=== PATIENT | male | born 1960 | race Caucasian/White ===

== ENCOUNTER 2020-02-12 15:11 | Emergency (ER) | payer SELFPAY ==
[~2020-02-12] VITALS: Ht 175.3 cm; Wt 76.8 kg
[2020-02-12] MEDS ORDERED: CLINDAMYCIN HCL 150 MG CAPSULE PO ONE (16:00)
[2020-02-12] MEDS ORDERED: LIDOCAINE 2%/EPI 1:100,000 20 ML VIAL. IJ ONE (16:00)
[2020-02-12] MEDS ORDERED: DIPH,PERTUSS(ACELL),TET VAC/PF 0.5 ML SYRINGE. VAX IM ONE (16:00)
[2020-02-12] MEDS ORDERED: BUTALB/APAP/CAFEIN 50/325/40MG TABLET. PO ONE (16:00)
--- NOTE | 2020-02-12 16:26 | RAD ---
RS Compliance Statement: One or more of the following individualized dose reduction techniques were utilized for this examination: 1. Automated exposure control 2. Adjustment of the mA and/or kV according to patient size 3. Use of iterative reconstruction technique CT HEAD WITHOUT CONTRAST History: Headache, head contusion, left sabianist abscess. Comparison: None. Procedure: Axial images are obtained of the head from the skull base through the vertex without IV contrast. Findings: The ventricles and sulci are normal for the patient's age. No mass-effect, midline shift, hemorrhage, extra-axial fluid collection, or obvious acute infarction is identified. Basilar cisterns are patent. Bone windows demonstrate no acute calvarial abnormality. There is moderate left orbit preseptal soft tissue swelling. There is left frontal scalp soft tissue swelling. There is a focal soft tissue density of the left frontal scalp measuring approximately 2.2 x 0.9 cm, image 19. No organized subcutaneous fluid collection is identified. The visualized paranasal sinuses are clear. Mastoid air cells are well aerated. IMPRESSION: 1. No acute intracranial abnormality. 2. There is left cheek, preseptal left orbit, and left frontal scalp soft tissue swelling. There is a focal soft tissue density of the left frontal scalp that may be hematoma. Electronically signed by: Boni Lynn MD (02/12/2020 4:24 PM) [id number]
[2020-02-12] MEDS ORDERED: BUTA1TAB23 PO (16:49)
[2020-02-12] MEDS ORDERED: CLIN300C8 PO (16:49)
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
[2020-02-12 17:27] VITALS: BP 141/91
== END 2020-02-12 17:39 | disposition home or self-care (01) ==
LOC: ER 15:11
DX: S00.83XA Contusion of other part of head, initial encounter (principal); L02.01 Cutaneous abscess of face; R51 Headache; F17.210 Nicotine dependence, cigarettes, uncomplicated; W22.8XXA Striking against or struck by other objects, initial encounter; Y93.89 Activity, other specified; Y92.89 Other specified places as the place of occurrence of the external cause; Y99.8 Other external cause status
CPT/HCPCS: 10060; 70450; 90471; 90715; 99284-25

== ENCOUNTER 2020-07-25 10:08 | Emergency (ER) | payer SELFPAY ==
[~2020-07-25] VITALS: Ht 175.3 cm; Wt 76.8 kg
[~2020-07-25 10:08] MED LIST: BUTA1TAB23 PO; CLIN300C8 PO
--- NOTE | 2020-07-25 10:34 | PHYS DOC ---
Past History Past Medical History: No Pertinent History Past Surgical History: No Surgical History Smoking: Cigarettes Alcohol Use: None Drug Use: None General Adult EDM: Chief Complaint: OVERDOSE HPI: HPI: 60-year-old male presents via EMS with possible overdose. The patient was found lying somewhere with a needle sticking out of his leg. The needle was removed prior to arrival. Patient is awake and alert. He is agitated and admits to only taking 1 Xanax pill. He was attempting to shoot up heroin but it did not work. He denies any other complaints except for being very thirsty. Review of Systems: Review of Systems: Constitutional: Denies fever or chills. Overdose Eyes: Denies change in visual acuity HENT: Denies nasal congestion or sore throat Respiratory: Denies cough or shortness of breath Cardiovascular: Denies chest pain or edema GI: Denies abdominal pain, nausea, vomiting, bloody stools or diarrhea : Denies dysuria Musculoskeletal: Denies back pain or joint pain Integument: Denies rash Neurologic: Denies headache, focal weakness or sensory changes Endocrine: Denies polyuria or polydipsia Lymphatic: Denies swollen glands Psychiatric: Denies depression or anxiety Allergies: Allergies: Allergies Coded Allergies Type Severity Reaction Last Updated Verified No Known Drug Allergies 02/12/20 No Physical Exam: PE: Constitutional: Well developed, well nourished, restless, non-toxic appearance. [] HENT: Normocephalic, atraumatic, bilateral external ears normal, oropharynx moist, no oral exudates, nose normal. [] Eyes: PERRLA, EOMI, conjunctiva normal, no discharge. [] Neck: Normal range of motion, no tenderness, supple, no stridor. [] Cardiovascular: Heart rate regular rhythm, no murmur [] Lungs & Thorax: Bilateral breath sounds clear to auscultation [] Abdomen: Bowel sounds normal, soft, no tenderness, no masses, no pulsatile masses. [] Skin: Warm, dry, no erythema, no rash. [] Back: No tenderness, no CVA tenderness. [] Extremities: No tenderness, no cyanosis, no clubbing, ROM intact, no edema. [] Neurologic: Alert and oriented X 3, normal motor function, normal sensory function, no focal deficits noted. [] Psychologic: Affect agitated, restless, judgement normal. [] EKG: EKG: [] Radiology/Procedures: Radiology/Procedures: [] Heart Score: Risk Factors: Risk Factors: DM, Current or recent (<one month) smoker, HTN, HLP, family history of CAD, obesity. Risk Scores: Score 0 - 3: 2.5% MACE over next 6 weeks - Discharge Home Score 4 - 6: 20.3% MACE over next 6 weeks - Admit for Clinical Observation Score 7 - 10: 72.7% MACE over next 6 weeks - Early Invasive Strategies Course & Med Decision Making: Course & Med Decision Making Pertinent Labs and Imaging studies reviewed. (See chart for details) The patient's labs are significant for some mild anemia and an elevated creatinine. I have given the patient couple liters normal saline. He was very thirsty and difficulty getting his urine. The patient's drug screen is positive for opiates, cocaine, methamphetamine, and benzodiazepines. I suspect that he did not just take a single Xanax. He is alert and oriented. He is able to walk without help. He is aware of his surroundings and situation. He is stable for discharge at this time. [] Dragon Disclaimer: Dragon Disclaimer: This electronic medical record was generated, in whole or in part, using a voice recognition dictation system. Departure Departure: Impression: Primary Impression: Polysubstance abuse Disposition: 01 DC HOME SELF CARE/HOMELESS Condition: STABLE Referrals: PCPOSWALD (PCP) Patient Instructions: Alcohol and Drug Addiction, Finding Treatment WESLEY STEELE DO Jul 25, 2020 10:34
[2020-07-25] MEDS ORDERED: ONDANSETRON PF 4 MG/2 ML VIAL. IVP ONE (10:45)
[2020-07-25] MEDS ORDERED: IV NORMAL SALINE 1,000ML 1,000 ML IV ONE ×2 (10:45→12:15)
[2020-07-25 11:34] LABS: BASO % 1 % (0-3); EOS # 0.1 x10^3/uL (0.0-0.7); EOS % 2 % (0-3); HEMATOCRIT 32.6 % (39.0-53.0); HEMOGLOBIN 10.1 g/dL (13.0-17.5); LYMPH # 1.1 x10^3/uL (1.0-4.8); LYMPH % 17 % (24-48); MEAN CORPUSCULAR HEMOGLOBIN 26 pg (25-35); MEAN CORPUSCULAR HGB CONC 31 g/dL (31-37); MEAN CORPUSCULAR VOLUME 84 fL (79-100); MONO # 0.9 x10^3/uL (0.0-1.1); MONO % 13 % (0-9); NEUT # 4.5 x10^3uL (1.8-7.7); NEUT % 68 % (31-73); PLATELET COUNT 261 x10^3/uL (140-400); RED BLOOD COUNT 3.87 x10^6/uL (4.30-5.70); RED CELL DISTRIBUTION WIDTH 15.6 % (11.5-14.5); WHITE BLOOD COUNT 6.7 x10^3/uL (4.0-11.0)
[2020-07-25 11:43] LABS: CALCIUM 9.3 mg/dL (8.5-10.1); CREATININE 1.5 mg/dL (0.7-1.3); GFR 47.7; POTASSIUM 5.3 mmol/L (3.5-5.1)
[2020-07-25 11:48] LABS: TOTAL BILIRUBIN 0.3 mg/dL (0.2-1.0)
[2020-07-25] MEDS ORDERED: HALOPERIDOL LACT 5 MG/ML VIAL. IVP ONE (12:00)
[2020-07-25 14:18] LABS: BACTERIA,URINE 0 /HPF (0-FEW); BILIRUBIN,URINE NEG (NEG); CLARITY,URINE CLEAR; COLOR,URINE YELLOW; GLUCOSE,URINE NEG (NEG); NITRITE,URINE NEG (NEG); RBC,URINE 0 /HPF (0-2); SQUAMOUS EPITHELIAL CELL,UR FEW /LPF; UROBILINOGEN,URINE 0.2 mg/dL (0.2 mg/dL); WBC,URINE OCC /HPF (0-4)
[2020-07-25 14:20] LABS: BARBITURATES NEG (NEG); BENZODIAZEPINES POS (NEG); CANNABINOIDS NEG (NEG); COCAINE POS (NEG); METHADONE NEG (NEG); OPIATES POS (NEG); PHENCYCLIDINE NEG (NEG)
[2020-07-25 14:24] LABS: AMPHETAMINE/METHAMPHETAMINE POS (NEG)
[2020-07-25 14:28] VITALS: BP 103/68
== END 2020-07-25 14:47 | disposition home or self-care (01) ==
LOC: ER 10:08
DX: F19.10 Other psychoactive substance abuse, uncomplicated (principal); R45.1 Restlessness and agitation; F17.210 Nicotine dependence, cigarettes, uncomplicated
CPT/HCPCS: 36415; 80053; 80307; 81001; 85025; 96361; 96374; 99283; J2405; J7030; 99284-25

== ENCOUNTER 2020-08-25 06:48 | Emergency (ER) | payer SELFPAY ==
[~2020-08-25] VITALS: Ht 175.3 cm; Wt 76.8 kg
--- NOTE | 2020-08-25 06:56 | PHYS DOC ---
Past History Past Medical History: No Pertinent History Past Surgical History: No Surgical History Smoking: Cigarettes Alcohol Use: None Drug Use: Cocaine, Methamphetamine General Adult EDM: Chief Complaint: ALTERED MENTAL STATUS HPI: HPI: Patient is a 60-year-old male who arrives with a chief complaint of altered mental status. Patient arrives via EMS after being called by the police department when he was trying to get into a neighbor's house. Patient is agitated and combative. Patient has altered mental status defers history physical review of systems are all limited due to altered mental status. Patient does complain of diffuse joint pain. Review of Systems: Review of Systems: Review of systems is unobtainable due to altered mental status but patient does complain of diffuse arthralgias Current Medications: Current Meds: Current Medications Haloperidol Lactate (Haldol) 5 mg 1X ONCE IVP ; Start 08/25/20 at 07:30; Stop 08/25/20 at 07:02; Status DC Lorazepam (Ativan Inj) 1 mg 1X ONCE IVP ; Start 08/25/20 at 07:30; Stop 08/25/20 at 07:02; Status DC Dextrose (Dextrose 50%-Water Syringe) 25 gm 1X ONCE IV Last administered on 08/25/20at 07:38; Start 08/25/20 at 07:00; Stop 08/25/20 at 07:02; Status DC Haloperidol Lactate (Haldol) 5 mg 1X ONCE IM Last administered on 08/25/20at 07:37; Start 08/25/20 at 07:00; Stop 08/25/20 at 07:04; Status DC Lorazepam (Ativan Inj) 1 mg 1X ONCE IM Last administered on 08/25/20at 07:38; Start 08/25/20 at 07:00; Stop 08/25/20 at 07:04; Status DC Lorazepam (Ativan Inj) 2 mg 1X ONCE IVP Last administered on 08/25/20at 07:38; Start 08/25/20 at 07:45; Stop 08/25/20 at 07:46; Status DC Sodium Chloride 1,000 ml @ 1,000 mls/hr 1X ONCE IV Last administered on 08/25/20at 08:29; Start 08/25/20 at 08:15; Stop 08/25/20 at 09:14; Status DC Active Scripts Active Clindamycin Hcl 300 Mg Capsule 1 Cap PO TID Riznwy-Sqmpwtyy-Owup 50-325-40 (Butalb/Acetaminophen/Caffeine) 1 Each Tablet 1 Each PO Q6HRS PRN Allergies: Allergies: Allergies Coded Allergies Type Severity Reaction Last Updated Verified No Known Drug Allergies 02/12/20 No Physical Exam: PE: Constitutional: Disheveled appearing anxious, no respiratory distress HENT: Normocephalic, atraumatic, bilateral external ears normal, no trismus nose normal. [] Eyes: PERRLA, EOMI, conjunctiva normal, no discharge. [] Neck: Normal range of motion, no tenderness, supple, no stridor. [] Cardiovascular:Heart rate regular rhythm, peripheral pulses are intact cap refill is brisk Lungs & Thorax: Bilateral breath sounds clear, no respiratory distress Abdomen: soft, no tenderness, no masses, no pulsatile masses. [] Skin: Warm, dry, no erythema, no rash. [] Several areas on upper extremities consistent with possible injection sites Back: No tenderness, no CVA tenderness. [] Extremities: no cyanosis, no clubbing, ROM intact, no edema. [] Neurologic: Alert but disoriented, normal motor function, normal sensory function, agitated unable to sit still Psychologic: Agitated, anxious Current Patient Data: Labs: Laboratory Tests Test 08/25/20 06:53 08/25/20 07:15 08/25/20 10:22 Glucose (Fingerstick) 68 mg/dL 76 mg/dL White Blood Count 8.5 x10^3/uL Red Blood Count 4.08 x10^6/uL Hemoglobin 10.5 g/dL Hematocrit 33.6 % Mean Corpuscular Volume 82 fL Mean Corpuscular Hemoglobin 26 pg Mean Corpuscular Hemoglobin Concent 31 g/dL Red Cell Distribution Width 16.8 % Platelet Count 254 x10^3/uL Neutrophils (%) (Auto) 68 % Lymphocytes (%) (Auto) 18 % Monocytes (%) (Auto) 10 % Eosinophils (%) (Auto) 4 % Basophils (%) (Auto) 1 % Neutrophils # (Auto) 5.8 x10^3uL Lymphocytes # (Auto) 1.5 x10^3/uL Monocytes # (Auto) 0.8 x10^3/uL Eosinophils # (Auto) 0.3 x10^3/uL Basophils # (Auto) 0.0 x10^3/uL Sodium Level 145 mmol/L Potassium Level 3.7 mmol/L Chloride Level 108 mmol/L Carbon Dioxide Level 24 mmol/L Anion Gap 13 Blood Urea Nitrogen 15 mg/dL Creatinine 1.1 mg/dL Estimated GFR (Cockcroft-Gault) 68.3 BUN/Creatinine Ratio 14 Glucose Level 77 mg/dL Calcium Level 8.3 mg/dL Magnesium Level 2.0 mg/dL Total Bilirubin 0.3 mg/dL Aspartate Amino Transf (AST/SGOT) 32 U/L Alanine Aminotransferase (ALT/SGPT) 31 U/L Alkaline Phosphatase 55 U/L Ammonia 16 mcmol/L Total Protein 7.5 g/dL Albumin 3.6 g/dL Albumin/Globulin Ratio 0.9 Salicylates Level < 2.8 mg/dL Salicylate Last Dose Date Unknown Salicylate Last Dose Time Unknown Acetaminophen Level < 2.0 mcg/mL Acetaminophen Last Dose Date Unknown Acetaminophen Last Dose Time Unknown Ethyl Alcohol Level < 10 mg/dL Current Medications Medications (Trade) Dose Ordered Sig/Eloise Route PRN Reason Start Time Stop Time Status Last Admin Dose Admin Haloperidol Lactate (Haldol) 5 mg 1X ONCE IVP 08/25/20 07:30 08/25/20 07:02 DC Lorazepam (Ativan Inj) 1 mg 1X ONCE IVP 08/25/20 07:30 08/25/20 07:02 DC Dextrose (Dextrose 50%-Water Syringe) 25 gm 1X ONCE IV 08/25/20 07:00 08/25/20 07:02 DC 08/25/20 07:38 Haloperidol Lactate (Haldol) 5 mg 1X ONCE IM 08/25/20 07:00 08/25/20 07:04 DC 08/25/20 07:37 Lorazepam (Ativan Inj) 1 mg 1X ONCE IM 08/25/20 07:00 08/25/20 07:04 DC 08/25/20 07:38 Lorazepam (Ativan Inj) 2 mg 1X ONCE IVP 08/25/20 07:45 08/25/20 07:46 DC 08/25/20 07:38 Sodium Chloride 1,000 ml @ 1,000 mls/hr 1X ONCE IV 08/25/20 08:15 08/25/20 09:14 DC 08/25/20 08:29 Vital Signs: Vital Signs Date Time Temp Pulse Resp B/P (MAP) Pulse Ox O2 Delivery O2 Flow Rate FiO2 08/25/20 06:48 97.7 88 24 105/61 (76) 96 Room Air EKG: EKG: [] EKG interpreted by me normal sinus rhythm with a rate of 76 normal axis normal intervals nonspecific ST changes Radiology/Procedures: Radiology/Procedures: [[address] [id number] IMAGING REPORT Signed PATIENT: SYLVIE PEACOCK ACCOUNT: [id number] : 1960 LOCATION: ER AGE: 60 SEX: M EXAM STATUS: REG ER ORD. PHYSICIAN: ROXANN SINGH MD REASON: AMS- IT'LL B AWHILE PER DR PROCEDURE: PORTABLE CHEST 1V AP chest. HISTORY: Altered mental status AP view was taken of the chest. Heart is normal in size. There is no pleural effusion. There is linear scarring or atelectasis in the medial right lower lobe. There are no other infiltrates. IMPRESSION: 1. Mild right lung base linear scar or atelectasis without other infiltrates. Electronically signed by: Garry Woodard MD (08/25/2020 9:28 AM) [id number] DICTATED AND SIGNED BY: GARRY WOODARD MD DATE: 08/25/20927 CC: ROXANN SINGH MD; PCP,NO ~MTH0 0 ] [address] [id number] IMAGING REPORT Signed PATIENT: SYLVIE PEACOCK ACCOUNT: [id number] : 1960 LOCATION: ER AGE: 60 SEX: M EXAM STATUS: REG ER ORD. PHYSICIAN: ROXANN SINGH MD REASON: AMS PROCEDURE: CT HEAD WO CONTRAST INDICATION: Reason: AMS / Spl. Instructions: / History: COMPARISON: February 12, 2020 TECHNIQUE: Axial CT images obtained through the head without intravenous contrast. One or more of the following individualized dose reduction techniques were utilized for this examination: 1. Automated exposure control; 2. Adjustment of the mA and/or kV according to patient size; 3. Use of iterative reconstruction technique. FINDINGS: No intracranial hemorrhage. No midline shift. Basal cisterns patents. Ventricles and sulci are globally prominent. No acute osseous abnormality. Orbits and paranasal sinuses unremarkable. Scattered foci of low attenuation within the white matter. IMPRESSION: 1. No acute intracranial hemorrhage. 2. Scattered regions of low attenuation within the white matter. Non-specific in nature but frequently secondary to chronic small vessel ischemic disease. 3. Prominence of ventricles and sulci which is frequently secondary to age related volume loss. Electronically signed by: Mariela Kearney MD (08/25/2020 10:06 AM) [id number] DICTATED AND SIGNED BY: MARIELA KEARNEY MD DATE: 08/25/20 1006 CC: ROXANN SINGH MD; PCP,NO ~MTH0 0 Heart Score: Risk Factors: Risk Factors: DM, Current or recent (<one month) smoker, HTN, HLP, family history of CAD, obesity. Risk Scores: Score 0 - 3: 2.5% MACE over next 6 weeks - Discharge Home Score 4 - 6: 20.3% MACE over next 6 weeks - Admit for Clinical Observation Score 7 - 10: 72.7% MACE over next 6 weeks - Early Invasive Strategies Course & Med Decision Making: Course & Med Decision Making Pertinent Labs and Imaging studies reviewed. (See chart for details) [] Procedure note: Clinical indication: Unable to obtain IV access Clinical procedure: Right external jugular placement Procedure note: Skin prepped with chlor hexedine prep. 20-gauge IV catheter inserted by me. IV secured. IV flushes and draws back easily. No complications. 60-year-old male presents via EMS with altered mental status. Patient extremely irrational and intermittently combative on initial assessment. Patient had to be medicated in the ER so would get an evaluation done. Patient much calmer after sedation and rested for multiple hours in ER. Patient's work-up is reassuring. CT is negative throughout intercranial process. Most likely patient symptoms are due to substance abuse. Patient reassessed at 1:10 PM and awake and alert. Patient will be discharged home. Return precautions. Cheri Disclaimer: Cheri Disclaimer: This electronic medical record was generated, in whole or in part, using a voice recognition dictation system. Departure Departure: Impression: Primary Impression: Polysubstance abuse Additional Impression: Metabolic encephalopathy Disposition: 01 DC HOME SELF CARE/HOMELESS Condition: STABLE Referrals: PCP,NO (PCP) Patient Instructions: Altered Mental Status, Substance Abuse-Brief Additional Instructions: EMERGENCY DEPARTMENT GENERAL DISCHARGE INSTRUCTIONS THANK YOU for coming to [facility] Emergency Department (ED) today and trusting us with your care. We trust that you had a positive experience in our Emergency Department. If you wish to speak to the department Management you can contact the emergency department at YOUR FOLLOW UP INSTRUCTIONS ARE FOLLOWS: Do you have a private doctor? If you do not have a private doctor, please ask for a resource list of physicians or clinics that may be able to assist you with follow up care. The Emergency Physician has interpreted your x-rays. The X-ray specialist will also review them. If there is a change in the findings you will be notified in 48 hours when at all possible. A lab test or lab culture may have been done, your results will be reviewed and you will be notified if you need a change in treatment. ADDITIONAL INSTRUCTIONS AND INFORMATION Your care today has been supervised by a physician who is specially trained in emergency care. Many problems require more than one evaluation for a complete diagnosis and treatment. We recommend that you schedule your follow up appointment as recommended to ensure complete treatment of your illness or injury. If you are unable to obtain follow up care and continue to have a problem, or if your condition worsens we recommend that you return to the ED. We are not able to safely determine your condition over the phone nor are we able to give sound medical advice over the phone. For these safety reasons, if you call for medical advice we will ask you to come to the ED for further evaluation If you have any questions regarding these discharge instructions please call the ED at SAFETY INFORMATION In the interest of safety, wellness, and injury prevention; we encourage you to wear your seatbelt, if you smoke; quit smoking, and we encourage your family to use protective helmet for bicycling and other sporting events that present an increased risk for head injury. IF YOUR SYMPTOMS WORSEN OR NEW SYMPTOMS DEVELOP, OR YOU HAVE CONCERNS ABOUT YOUR CONDITION; OR IF YOUR CONDITION WORSENS WHILE YOU ARE WAITING FOR YOUR FOLLOW UP APPOINTMENT; EITHER CONTACT YOUR PRIMARY CARE DOCTOR, THE PHYSICIAN WHOSE NAME AND NUMBER YOU WERE GIVEN, OR RETURN TO THE ED IMMEDIATELY. ROXANN SINGH MD Aug 25, 2020 06:56
[2020-08-25] MEDS ORDERED: HALOPERIDOL LACT 5 MG/ML VIAL. IM ONE (07:00)
[2020-08-25] MEDS ORDERED: DEXTROSE 50% 25 GM / 50ML DISP.SYRIN. IV ONE (07:00)
[2020-08-25] MEDS ORDERED: HALOPERIDOL LACT 5 MG/ML VIAL. IVP ONE (07:30)
[2020-08-25 07:55] LABS: BASO % 1 % (0-3); EOS # 0.3 x10^3/uL (0.0-0.7); EOS % 4 % (0-3); HEMATOCRIT 33.6 % (39.0-53.0); HEMOGLOBIN 10.5 g/dL (13.0-17.5); LYMPH # 1.5 x10^3/uL (1.0-4.8); LYMPH % 18 % (24-48); MEAN CORPUSCULAR HEMOGLOBIN 26 pg (25-35); MEAN CORPUSCULAR HGB CONC 31 g/dL (31-37); MEAN CORPUSCULAR VOLUME 82 fL (79-100); MONO # 0.8 x10^3/uL (0.0-1.1); MONO % 10 % (0-9); NEUT # 5.8 x10^3uL (1.8-7.7); NEUT % 68 % (31-73); PLATELET COUNT 254 x10^3/uL (140-400); RED BLOOD COUNT 4.08 x10^6/uL (4.30-5.70); RED CELL DISTRIBUTION WIDTH 16.8 % (11.5-14.5); WHITE BLOOD COUNT 8.5 x10^3/uL (4.0-11.0)
[2020-08-25 07:58] LABS: CALCIUM 8.3 mg/dL (8.5-10.1); CREATININE 1.1 mg/dL (0.7-1.3); GFR 68.3; POTASSIUM 3.7 mmol/L (3.5-5.1)
[2020-08-25 08:01] LABS: ETHANOL < 10 mg/dL (0-10); SALIC < 2.8 mg/dL (2.8-20.0)
[2020-08-25 08:02] LABS: ACETAMIN < 2.0 mcg/mL (10-30)
[2020-08-25 08:05] LABS: ALBUMIN 3.6 g/dL (3.4-5.0); ALBUMIN/GLOBULIN RATIO 0.9 (1.0-1.7); TOTAL BILIRUBIN 0.3 mg/dL (0.2-1.0); TOTAL PROTEIN 7.5 g/dL (6.4-8.2)
[2020-08-25] MEDS ORDERED: IV NORMAL SALINE 1,000ML 1,000 ML IV ONE (08:15)
--- NOTE | 2020-08-25 08:59 | EKG ---
[address] [address] Test Date: 2020-08-25 Test Time: 08:09:13 Pat Name: SYLVIE PEACOCK Department: Room: Gender: M Supervisor Customer Complaint Service: : 1960 Requested By: ROXANN SINGH Order Number: [id number] Reading MD: Measurements Intervals [place] Rate: 76 P: 59 [place]: 190 QRS: 31 QRSD: 100 T: 66 QT: 390 QTc: 443 Interpretive Statements SINUS RHYTHM T ABNORMALITY IN HIGH LATERAL LEADS ABNORMAL ECG RI6.02 No previous ECG available for comparison
--- NOTE | 2020-08-25 09:31 | RAD ---
AP chest. HISTORY: Altered mental status AP view was taken of the chest. Heart is normal in size. There is no pleural effusion. There is linear scarring or atelectasis in the medial right lower lobe. There are no other infiltrates. IMPRESSION: 1. Mild right lung base linear scar or atelectasis without other infiltrates. Electronically signed by: Garry Woodard MD (08/25/2020 9:28 AM) [id number]
--- NOTE | 2020-08-25 10:09 | RAD ---
INDICATION: Reason: AMS / Spl. Instructions: / History: COMPARISON: February 12, 2020 TECHNIQUE: Axial CT images obtained through the head without intravenous contrast. One or more of the following individualized dose reduction techniques were utilized for this examination: 1. Automated exposure control; 2. Adjustment of the mA and/or kV according to patient size; 3. Use of iterative reconstruction technique. FINDINGS: No intracranial hemorrhage. No midline shift. Basal cisterns patents. Ventricles and sulci are globally prominent. No acute osseous abnormality. Orbits and paranasal sinuses unremarkable. Scattered foci of low attenuation within the white matter. IMPRESSION: 1. No acute intracranial hemorrhage. 2. Scattered regions of low attenuation within the white matter. Non-specific in nature but frequently secondary to chronic small vessel ischemic disease. 3. Prominence of ventricles and sulci which is frequently secondary to age related volume loss. Electronically signed by: Agusto Loera MD (08/25/2020 10:06 AM) [id number]
[2020-08-25 13:17] VITALS: BP 139/86
== END 2020-08-25 14:00 | disposition home or self-care (01) ==
LOC: ER 06:48
DX: F19.10 Other psychoactive substance abuse, uncomplicated (principal); G93.41 Metabolic encephalopathy; F17.210 Nicotine dependence, cigarettes, uncomplicated; F14.10 Cocaine abuse, uncomplicated; F15.10 Other stimulant abuse, uncomplicated
CPT/HCPCS: 36415; 36556; 70450; 71045; 80053; 80329; 82140; 82947; 83735; 85025; 93005; 96361; 96372; 96374; 96375; 99285; G0480; J1630; J2060; J7030

== ENCOUNTER 2021-03-14 21:01 | Emergency (ER) | payer SELFPAY ==
[~2021-03-14] VITALS: Ht 175.3 cm; Wt 76.8 kg
[~2021-03-14 21:01] MED LIST changes: -CLIN300C8 PO; +CLIN300C9 PO
--- NOTE | 2021-03-14 21:39 | PHYS DOC ---
Past History Past Medical History: Alcoholism, Anxiety, COPD Past Surgical History: Other Additional Past Surgical Histo: ORAL SX Smoking: Cigarettes Alcohol Use: Occasionally Drug Use: Cocaine, Methamphetamine General Adult EDM: Chief Complaint: DEHYDRATION HPI: HPI: ".. I was out side to long today.. 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 I got cramps. now.. out side to long.. got dehydrated.. " Patient is a 60 year old male who presents with above hx and complaints generalized malaise, arthralgia, myalgia, muscle cramps, abdomen pain and fatigue. Patient admits to poor intake today. 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 Patient has past history of polysubstance abuse use of cocaine and methamphetamine. Patient does smoke tobacco and marijuana. No recent travel. No specific ill contacts. Patient admits to minimal urine output and what the urine output has been very dark in color. Review of Systems: Review of Systems: Constitutional: Denies fever or chills Eyes: Denies change in visual acuity HENT: Denies nasal congestion or sore throat Respiratory: Denies cough or shortness of breath Cardiovascular: Denies chest pain or edema GI: Denies abdominal pain, nausea, vomiting, bloody stools or diarrhea : Denies dysuria Musculoskeletal: Complains of cramps Integument: Denies rash Neurologic: Denies headache, focal weakness or sensory changes Endocrine: Denies polyuria or polydipsia Lymphatic: Denies swollen glands Psychiatric: Denies depression or anxiety Family History: Family History: Noncontributory to presentation Current Medications: Current Meds: See nursing for home meds Allergies: Allergies: Allergies Coded Allergies Type Severity Reaction Last Updated Verified No Known Drug Allergies 02/12/20 No Physical Exam: PE: Constitutional: Mild distress, non-toxic appearance. [] HENT: Normocephalic, atraumatic, bilateral external ears normal, oropharynx dry, no oral exudates, nose normal. Edentulous Eyes: PERRLA, EOMI, conjunctiva normal, no discharge. [] Neck: Normal range of motion, no tenderness, supple, no stridor. [] Cardiovascular:Heart rate regular rhythm, no murmur [PMI slightly to the left,] Lungs & Thorax: Bilateral breath sounds to apex with scattered wheezes on auscultation [] Abdomen: Bowel sounds normal, soft, no tenderness, no masses, no pulsatile masses. [] Skin: Warm, dry, no erythema, no rash. Poor turgor. Back: No tenderness, no CVA tenderness. [] Extremities: No tenderness, no cyanosis, no clubbing, ROM intact, no edema. [] No cording appreciated Neurologic: Alert and oriented X 3, moves extremities on request, does have distal sensory., no focal deficits noted. [] Psychologic: Affect anxious, judgement normal, mood normal. [] Current Patient Data: Vital Signs: Vital Signs Date Time Temp Pulse Resp B/P (MAP) Pulse Ox O2 Delivery O2 Flow Rate FiO2 03/14/21 21:30 97.7 96 18 106/73 (84 95 Room Air EKG: EKG: My interpretation EKG shows a sinus rhythm at 71 bpm. No acute morphology [] Radiology/Procedures: Radiology/Procedures: [][place] [address] IMAGING REPORT Signed PATIENT: SYLVIE PEACOCK ACCOUNT: [id number] : 1960 LOCATION: ER AGE: 60 SEX: M EXAM STATUS: REG ER ORD. PHYSICIAN: AMANDA CA MD REASON: pain PROCEDURE: PORTABLE CHEST 1V PROCEDURE: XR CHEST 1V.03/14/2021 11:56 PM REASON FOR STUDY: Reason: pain / Spl. Instructions: / History: . Prior altered mental status. COMPARISON: Chest 08/25/2020.. FINDINGS: The lungs are clear. No pleural fluid is seen. Heart size and pulmonary vascularity appear normal. IMPRESSION: No acute abnormality. Electronically signed by: Marco Sanders Jr., MD (03/14/2021 11:56 PM) [facility] DICTATED AND SIGNED BY: MARCO SANDERS Jr, MD DATE: 03/14/21 9601 CC: AMANDA CA MD; PCP,NO ~MTH0 0 Heart Score: C/O Chest Pain: N/A HEART Score for Chest Pain: HEART Score for Chest Pain Response (Comments) Value History Slighlty/Non-Suspicious 0 ECG Normal 0 Age >45 - < 65 1 Risk Factors 1 or 2 Risk Factors 1 Troponin < Normal Limit 0 Total 2 Risk Factors: Risk Factors: DM, Current or recent (<one month) smoker, HTN, HLP, family history of CAD, obesity. Risk Scores: Score 0 - 3: 2.5% MACE over next 6 weeks - Discharge Home Score 4 - 6: 20.3% MACE over next 6 weeks - Admit for Clinical Observation Score 7 - 10: 72.7% MACE over next 6 weeks - Early Invasive Strategies Course & Med Decision Making: Course & Med Decision Making Pertinent Labs and Imaging studies reviewed. (See chart for details) Patient received IV fluids lactated Ringer's. Eventually was able to produce urine. After fluid boluses patient reported feeling 100% better and result resolution of his muscle cramps. Patient encouraged to push fluids. Take Tylenol and ibuprofen for discomfort. Return for any concerns. Follow-up primary care. Correct patient reduce tobacco use and avoid illicit drugs. Impression: 1. Dehydration 2. Heat exhaustion 3. Mild elevation in creatinine 1.6 4. Mild anemia 12.6 hemoglobin 5. Elevated CK at 435. 6. Drug screen positive for opiates and benzos [] Dragon Disclaimer: Dragon Disclaimer: This electronic medical record was generated, in whole or in part, using a voice recognition dictation system. Departure Departure: Referrals: PCP,NO (PCP) Cheri Disclaimer This chart was dictated in whole or in part using Voice Recognition software in a busy, high-work load, and often noisy Emergency Department environment. It may contain unintended and wholly unrecognized errors or omissions. AMANDA CA MD Mar 14, 2021 21:39
[2021-03-14] MEDS ORDERED: IV RINGERS SOLUTION,LACTATED 1,000 ML IV SCH (22:15)
[2021-03-14] MEDS ORDERED: ACETAMINOPHEN 500 MG TABLET PO ONE (22:15)
[2021-03-14 22:25] LABS: BASO # 0.1 x10^3/uL (0.0-0.2); BASO % 1 % (0-3); EOS # 0.3 x10^3/uL (0.0-0.7); EOS % 3 % (0-3); HEMATOCRIT 37.7 % (39.0-53.0); HEMOGLOBIN 12.6 g/dL (13.0-17.5); LYMPH # 0.9 x10^3/uL (1.0-4.8); LYMPH % 9 % (24-48); MEAN CORPUSCULAR HEMOGLOBIN 29 pg (25-35); MEAN CORPUSCULAR HGB CONC 33 g/dL (31-37); MEAN CORPUSCULAR VOLUME 86 fL (79-100); MONO # 0.8 x10^3/uL (0.0-1.1); MONO % 7 % (0-9); NEUT # 8.4 x10^3uL (1.8-7.7); NEUT % 80 % (31-73); PLATELET COUNT 333 x10^3/uL (140-400); RED BLOOD COUNT 4.37 x10^6/uL (4.30-5.70); RED CELL DISTRIBUTION WIDTH 15.1 % (11.5-14.5); WHITE BLOOD COUNT 10.4 x10^3/uL (4.0-11.0)
[2021-03-14 22:36] LABS: BARBITURATES NEG (NEG); BENZODIAZEPINES POS (NEG); CANNABINOIDS NEG (NEG); COCAINE NEG (NEG); METHADONE NEG (NEG); OPIATES POS (NEG); PHENCYCLIDINE NEG (NEG)
[2021-03-14 22:42] LABS: AMPHETAMINE/METHAMPHETAMINE POS (NEG)
[2021-03-14 22:44] LABS: ALBUMIN 4.3 g/dL (3.4-5.0); CALCIUM 8.7 mg/dL (8.5-10.1); CREATININE 1.6 mg/dL (0.7-1.3); DIRECT BILIRUBIN 0.1 mg/dL (0.0-0.2); GFR 44.3; MAGNESIUM 2.6 mg/dL (1.8-2.4); POTASSIUM 4.1 mmol/L (3.5-5.1); TOTAL BILIRUBIN 0.2 mg/dL (0.2-1.0); TOTAL PROTEIN 8.4 g/dL (6.4-8.2)
[2021-03-14 22:50] LABS: BILIRUBIN,URINE NEG (NEG); CLARITY,URINE CLEAR; COLOR,URINE YELLOW; GLUCOSE,URINE NEG (NEG); NITRITE,URINE NEG (NEG); UROBILINOGEN,URINE 0.2 mg/dL (0.2 mg/dL)
[2021-03-14 22:51] LABS: BACTERIA,URINE 0 /HPF (0-FEW); RBC,URINE 0 /HPF (0-2); SQUAMOUS EPITHELIAL CELL,UR FEW /LPF
--- NOTE | 2021-03-14 23:59 | RAD ---
PROCEDURE: XR CHEST 1V.03/14/2021 11:56 PM REASON FOR STUDY: Reason: pain / Spl. Instructions: / History: . Prior altered mental status. COMPARISON: Chest 08/25/2020.. FINDINGS: The lungs are clear. No pleural fluid is seen. Heart size and pulmonary vascularity appear normal. IMPRESSION: No acute abnormality. Electronically signed by: Abhishek Ballesteros Jr., MD (03/14/2021 11:56 PM) [facility]
[2021-03-15 00:58] VITALS: BP 117/7
--- NOTE | 2021-03-15 06:19 | EKG ---
[address] [address] Test Date: 2021-03-14 Test Time: 22:30:51 Pat Name: SYLVIE PEACOCK Department: Room: Gender: M Proposal Director: ELOISE : 1960 Requested By: AMANDA CA Order Number: [id number] Reading MD: Measurements Intervals [place] Rate: 71 P: 0 [place]: 162 QRS: 7 QRSD: 94 T: 34 QT: 372 QTc: 409 Interpretive Statements SINUS RHYTHM NORMAL ECG RI6.02 No previous ECG available for comparison
== END 2021-03-15 00:57 | disposition home or self-care (01) ==
LOC: ER 21:01
DX: E86.0 Dehydration (principal); D64.9 Anemia, unspecified; R41.82 Altered mental status, unspecified; T67.5XXA Heat exhaustion, unspecified, initial encounter; J44.9 Chronic obstructive pulmonary disease, unspecified; F17.210 Nicotine dependence, cigarettes, uncomplicated; F15.10 Other stimulant abuse, uncomplicated; F14.10 Cocaine abuse, uncomplicated; X58.XXXA Exposure to other specified factors, initial encounter; Y93.89 Activity, other specified; Y92.89 Other specified places as the place of occurrence of the external cause; Y99.8 Other external cause status
CPT/HCPCS: 36415; 71045; 80048; 80076; 80307; 81001; 82550; 83690; 83735; 83880; 84443; 84484; 85025; 93005; 96360; 99285; J7120

== ENCOUNTER 2021-05-14 17:50 | Emergency (ER) | payer SELFPAY ==
[~2021-05-14] VITALS: Ht 175.3 cm; Wt 75.5 kg
--- NOTE | 2021-05-14 18:00 | RAD ---
CT STROKE HEAD W/O Date: 05/14/2021 5:51 PM Clinical Indication: CODE STROKE, RT SIDE WEAKNESS Comparison: None. Technique: 5 mm axial tomographic images were obtained of the head without contrast. These were view ed on brain and bone windows. One or more of the following dose reduction techniques were utilized: A utomated exposure control (AEC), Adjustment of mA and/or kV according to patient size, Use of iterati ve reconstruction technique such as ASiR, CT scan done according to ALARA and image gently/image jimenez ly Findings: The brain parenchyma is normal in attenuation. No intra- or extra-axial mass or fluid collection. No acute hemorrhage. The ventricles are normal in size, shape, and morphology. The segura-white matter jarad ction is normal. The subarachnoid cisterns are patent. The visualized paranasal sinuses are normal. The visualized portions of the orbits and globes are no rmal. The mastoid air cells are clear. The nut tightener topogram shows no lytic lesion or fracture. Impression: No acute hemorrhage or large territory segura-white loss. FOR INTERNAL CODING PURPOSES Critical result: Findings discussed with the emergency department at 05/14/2021 5:55 PM. RESULT CODE: (C) Electronically signed by: Dimas Lagos MD (05/14/2021 5:57 PM) [facility]
--- NOTE | 2021-05-14 18:22 | PHYS DOC ---
Past History Past Medical History: Alcoholism, Anxiety, COPD Past Surgical History: Other Additional Past Surgical Histo: ORAL SX Smoking: Cigarettes Alcohol Use: Occasionally Drug Use: Cocaine, Methamphetamine General Adult EDM: Chief Complaint: HEAT EXPOSURE HPI: HPI: 61-year-old male presents via EMS with heat exposure. He sounded like he was slurring his words per EMS so he was sent to have a CT scan on arrival. Patient tells me that he had some time to coordinate today and then he spent all day outside. He admits to doing drugs recently but is not sure if it was today. He thinks he passed out sometime today outside against a fence. He does not have a good reason why he was not at home inside an air conditioning. He tells me he is very thirsty but otherwise feels fine. Review of Systems: Review of Systems: Constitutional: Denies fever or chills Eyes: Denies change in visual acuity HENT: Denies nasal congestion or sore throat Respiratory: Denies cough or shortness of breath Cardiovascular: Denies chest pain or edema GI: Denies abdominal pain, nausea, vomiting, bloody stools or diarrhea : Denies dysuria Musculoskeletal: Denies back pain or joint pain Integument: Denies rash Neurologic: Denies headache, focal weakness or sensory changes Endocrine: polydipsia Lymphatic: Denies swollen glands Psychiatric: Denies depression or anxiety Allergies: Allergies: Allergies Coded Allergies Type Severity Reaction Last Updated Verified No Known Drug Allergies 02/12/20 No Physical Exam: PE: Constitutional: Well developed, well nourished, no acute distress, intoxicated. [] HENT: Normocephalic, atraumatic, bilateral external ears normal, oropharynx dry, no oral exudates, nose normal. [] Eyes: Pinpoint pupils, EOMI, conjunctiva normal, no discharge. [] Neck: Normal range of motion, no tenderness, supple, no stridor. [] Cardiovascular: Heart rate regular rhythm, no murmur [] Lungs & Thorax: Bilateral breath sounds clear to auscultation [] Abdomen: Bowel sounds normal, soft, no tenderness, no masses, no pulsatile masses. [] Skin: Warm, dry, no erythema, no rash. [] Back: No tenderness, no CVA tenderness. [] Extremities: No tenderness, no cyanosis, no clubbing, ROM intact, no edema. [] Neurologic: Alert and oriented X 3, normal motor function, normal sensory functi on, no focal deficits noted. [] Psychologic: Affect normal, judgement normal, mood normal. [] Current Patient Data: Vital Signs: Vital Signs Date Time Temp Pulse Resp B/P (MAP) Pulse Ox O2 Delivery O2 Flow Rate FiO2 05/14/21 17:56 98.1 65 14 111/75 95 Room Air EKG: EKG: [] Radiology/Procedures: Radiology/Procedures: [] Heart Score: C/O Chest Pain: N/A Risk Factors: Risk Factors: DM, Current or recent (<one month) smoker, HTN, HLP, family history of CAD, obesity. Risk Scores: Score 0 - 3: 2.5% MACE over next 6 weeks - Discharge Home Score 4 - 6: 20.3% MACE over next 6 weeks - Admit for Clinical Observation Score 7 - 10: 72.7% MACE over next 6 weeks - Early Invasive Strategies Course & Med Decision Making: Course & Med Decision Making Pertinent Labs and Imaging studies reviewed. (See chart for details) The patient does appear clinically dehydrated. We will give him a liter of normal saline to drink fluids p.o. work-up is pending. While the patient was waiting for treatment and his work-up, he did not like the fact that we asked him to give us urine so he left the emergency room. He left AGAINST MEDICAL ADVICE. [] [place] Disclaimer: Cheri Disclaimer: This electronic medical record was generated, in whole or in part, using a voice recognition dictation system. Departure Departure: Impression: Primary Impression: Dehydration Additional Impression: Intoxication by drug Disposition: LEFT AGAINST MEDICAL ADVICE Condition: STABLE Referrals: PCP,OSWALD (PCP) WESLEY STEELE DO May 14, 2021 18:22
[2021-05-14 19:59] VITALS: BP 120/76
[2021-05-14] MEDS ORDERED: IV NORMAL SALINE 1,000ML 1,000 ML IV ONE (20:00)
[2021-05-14] MEDS ORDERED: NALOXONE 0.4 MG/ML VIAL. IV ONE (20:00)
== END 2021-05-14 19:56 | disposition left against medical advice (07) ==
LOC: ER 17:50
DX: E86.0 Dehydration (principal); T43.625A Adverse effect of amphetamines, initial encounter; J44.9 Chronic obstructive pulmonary disease, unspecified; F17.210 Nicotine dependence, cigarettes, uncomplicated; Y92.9 Unspecified place or not applicable
CPT/HCPCS: 70450; 99284-25

== ENCOUNTER 2021-05-16 16:19 | Emergency (ER) | payer SELFPAY ==
[~2021-05-16] VITALS: Ht 175.3 cm; Wt 75.5 kg
[2021-05-16] MEDS ORDERED: IV NORMAL SALINE 1,000ML 1,000 ML IV ONE (16:30)
--- NOTE | 2021-05-16 16:36 | PHYS DOC ---
Past History Past Medical History: Alcoholism, Anxiety, COPD (MARI HUTCHINSON APRN) Past Surgical History: Other Additional Past Surgical Histo: ORAL SX (MARI HUTCHINSON APRN) Smoking: Cigarettes Alcohol Use: Occasionally Drug Use: Cocaine, Methamphetamine (MARI HUTCHINSON APRN) General Adult EDM: Chief Complaint: ALTERED MENTAL STATUS HPI: HPI: Patient is a 61-year-old male who was brought in to the ER today by EMS for possible heat exhaustion. Patient states that he was seen here within the last 2 weeks for heat exhaustion. Patient reports that he was outside today working on his car. Apparently PD was performing a sobriety test on patient because he was found outside of his vehicle when he started experiencing his symptoms. Patient is complaining of lightheadedness, headache, decreased sensation to his entire right side. Patient has a history of polysubstance abuse. (MARI HUTCHINSON APRN) Review of Systems: Review of Systems: 14 body systems of the review of systems have been reviewed. See HPI for pertinent positive and negative responses, otherwise all other systems are neg ative, nonpertinent or noncontributory (MARI HUTCHINSON APRN) Current Medications: Current Meds: Current Medications Medications (Trade) Dose Ordered Sig/Eloise Start Time Stop Time Status Last Admin Dose Admin Sodium Chloride 1,000 ml @ 1,000 mls/hr 1X ONCE 05/16/21 16:30 05/16/21 17:29 UNV (MARI HUTCHINSON APRN) Allergies: Allergies: Allergies Coded Allergies Type Severity Reaction Last Updated Verified No Known Drug Allergies 02/12/20 No (MARI HUTCHINSON APRN) Physical Exam: PE: Constitutional: Well developed, well nourished, no acute distress, non-toxic appearance. [] HENT: Normocephalic, atraumatic, bilateral external ears normal, oropharynx moist, no oral exudates, nose normal. [] Eyes: PERRLA, EOMI, conjunctiva normal, no discharge. [] Neck: Normal range of motion, no stridor Cardiovascular:Heart rate regular rhythm, no murmur [] Lungs & Thorax: Bilateral breath sounds clear to auscultation [] Abdomen: Bowel sounds normal, soft, no tenderness, no masses, no pulsatile masses. [] Skin: Warm, dry, no erythema, no rash. [] Back: Normal range of motion Extremities: No tenderness, no cyanosis, no clubbing, ROM intact, no edema. [] Neurologic: Alert and oriented X 3, normal motor function, normal sensory function, no pronator drift, patient is moving all 4 extremities equally, equal strength upper and lower extremities, no ataxia, slurred speech. [] Psychologic: Affect normal, judgement normal,, drowsy, mood normal. [] (MARI HUTCHINSON APRN) EKG: EKG: EKG performed by ER staff at 1731 shows sinus rhythm, no STEMI as read by Dr. Horn at 1737. [] (MARI HUTCHINSON APRN) Radiology/Procedures: Radiology/Procedures: PROCEDURE: CT HEAD WO CONTRAST CT HEAD INDICATION: Decreased right-sided sensation COMPARISON: 05/14/2021. Exposure: One or more of the following individualized dose reduction techniques were utilized for this examination: 1. Automated exposure control 2. Adjustment of the mA and/or kV according to patient size 3. Use of iterative reconstruction technique TECHNIQUE: 5 mm contiguous axial images were obtained from the skull base to the vertex in both bone and soft tissue algorithm. FINDINGS: No abnormal attenuation within the brain parenchyma. No evidence of acute intracranial hemorrhage. No extra-axial fluid collections. No mass effect or midline shift. Ventricular size is appropriate. Basal cisterns are patent. No fractures identified.Adkins-white differentiation is preserved.Globes and orbits are within normal limits. Paranasal sinuses and mastoid air cells are clear. IMPRESSION: No acute intracranial findings. Electronically signed by: Joseph Millard MD (05/16/2021 6:17 PM) [id number] DICTATED AND SIGNED BY: JOSEPH MILLARD MD DATE: 05/16/211813 CC: MARI HUTCHINSON APRN; PCP,NO ~MTH0 0 [] (MARI HUTCHINSON APRN) Heart Score: C/O Chest Pain: No Risk Factors: Risk Factors: DM, Current or recent (<one month) smoker, HTN, HLP, family history of CAD, obesity. Risk Scores: Score 0 - 3: 2.5% MACE over next 6 weeks - Discharge Home Score 4 - 6: 20.3% MACE over next 6 weeks - Admit for Clinical Observation Score 7 - 10: 72.7% MACE over next 6 weeks - Early Invasive Strategies (MARI HUTCHINSON APRN) Course & Med Decision Making: Course & Med Decision Making Pertinent Labs and Imaging studies reviewed. (See chart for details) Patient is a 61-year-old male being seen in the ER for possible heat exhaustion. Work-up in the ER consisted of blood work, urinalysis, CT scan of head. Patient was treated with fluids via IV and oral intake. Lab work was unremarkable. CT scan of head unremarkable. 1827: Patient eloped from ER, he had removed his IV prior to elopment. (MARI HUTCHINSON APRN) Course & Med Decision Making Did not see or evaluate patient. Agree with [employer] DEVELOPER's work-up and disposition per note. (CORRINA GAGNON MD) Dragon Disclaimer: Dragon Disclaimer: This electronic medical record was generated, in whole or in part, using a voice recognition dictation system. (MARI HUTCHINSON APRN) Departure Departure: Impression: Primary Impression: Eloped from emergency department Disposition: 07 LEFT AWOL/ELOPED Condition: STABLE Referrals: PCP,NO (PCP) MARI HUTCHINSON APRN May 16, 2021 16:36 CORRINA GAGNON MD May 16, 2021 19:00
[2021-05-16] MEDS ORDERED: FOLIC ACID 1 MG TABLET PO ONE (16:45)
[2021-05-16 17:53] LABS: BASO % 1 % (0-3); EOS # 0.1 x10^3/uL (0.0-0.7); EOS % 1 % (0-3); HEMATOCRIT 35.8 % (39.0-53.0); HEMOGLOBIN 11.8 g/dL (13.0-17.5); LYMPH # 0.6 x10^3/uL (1.0-4.8); LYMPH % 6 % (24-48); MEAN CORPUSCULAR HEMOGLOBIN 28 pg (25-35); MEAN CORPUSCULAR HGB CONC 33 g/dL (31-37); MEAN CORPUSCULAR VOLUME 85 fL (79-100); MONO # 0.4 x10^3/uL (0.0-1.1); MONO % 5 % (0-9); NEUT # 7.6 x10^3uL (1.8-7.7); NEUT % 88 % (31-73); PLATELET COUNT 291 x10^3/uL (140-400); RED BLOOD COUNT 4.21 x10^6/uL (4.30-5.70); RED CELL DISTRIBUTION WIDTH 13.8 % (11.5-14.5); WHITE BLOOD COUNT 8.7 x10^3/uL (4.0-11.0)
--- NOTE | 2021-05-16 18:04 | EKG ---
[address] [address] Test Date: 2021-05-16 Test Time: 17:31:17 Pat Name: SYLVIE PEACOCK Department: Room: Gender: M Outdoor Adventure Guides: FRANCIE : 1960 Requested By: MARI HUTCHINSON Order Number: [id number] Reading MD: Measurements Intervals [place] Rate: 92 P: 7 [place]: 164 QRS: -29 QRSD: 98 T: 58 QT: 338 QTc: 423 Interpretive Statements SINUS RHYTHM LEFTWARD AXIS OTHERWISE NORMAL ECG RI6.02 No previous ECG available for comparison
[2021-05-16 18:06] VITALS: BP 165/93
[2021-05-16 18:06] LABS: CALCIUM 8.4 mg/dL (8.5-10.1); CREATININE 0.8 mg/dL (0.7-1.3); GFR 98.3; POTASSIUM 3.7 mmol/L (3.5-5.1)
[2021-05-16 18:13] LABS: ALBUMIN 3.7 g/dL (3.4-5.0); ALBUMIN/GLOBULIN RATIO 0.9 (1.0-1.7); TOTAL BILIRUBIN 0.2 mg/dL (0.2-1.0); TOTAL PROTEIN 7.6 g/dL (6.4-8.2)
--- NOTE | 2021-05-16 18:20 | RAD ---
CT HEAD INDICATION: Decreased right-sided sensation COMPARISON: 05/14/2021. Exposure: One or more of the following individualized dose reduction techniques were utilized for thi s examination: 1. Automated exposure control 2. Adjustment of the mA and/or kV according to patient size 3. Use of iterative reconstruction technique TECHNIQUE: 5 mm contiguous axial images were obtained from the skull base to the vertex in both bone and soft tissue algorithm. FINDINGS: No abnormal attenuation within the brain parenchyma. No evidence of acute intracranial hemorrhage. No extra-axial fluid collections. No mass effect or midline shift. Ventricular size is appropriate. Basal cisterns are patent. No fractures identified.Adkins-white differentiation is preserved.Globes and orbits are within normal l imits. Paranasal sinuses and mastoid air cells are clear. IMPRESSION: No acute intracranial findings. Electronically signed by: Joseph Millard MD (05/16/2021 6:17 PM) [id number]
[2021-05-17] MEDS ORDERED: THIAMINE INJ 100 MG in IV NORMAL SALINE 50ML 50 ML IV SCH (09:00)
== END 2021-05-16 18:31 | disposition left against medical advice (07) ==
LOC: ER 16:19
DX: R42 Dizziness and giddiness (principal); R51.9 Headache, unspecified; F10.20 Alcohol dependence, uncomplicated; J44.9 Chronic obstructive pulmonary disease, unspecified; F41.9 Anxiety disorder, unspecified; F17.210 Nicotine dependence, cigarettes, uncomplicated; F15.10 Other stimulant abuse, uncomplicated; F14.10 Cocaine abuse, uncomplicated; Y90.0 Blood alcohol level of less than 20 mg/100 ml
CPT/HCPCS: 36415; 70450; 80053; 84484; 85025; 93005; 96360; 99285; G0480; J7030

== ENCOUNTER 2021-08-23 19:58 | Emergency (ER) | payer SELFPAY ==
[~2021-08-23] VITALS: Ht 175.3 cm; Wt 75.5 kg
[2021-08-23 19:58] VITALS: BP 130/85
[~2021-08-23 19:58] MED LIST changes: +CLIN-95 PO; -CLIN300C9 PO
[2021-08-23] MEDS ORDERED: ACETAMINOPHEN 500 MG TABLET PO ONE (20:15)
[2021-08-23] MEDS ORDERED: diphenhydrAMINE HCL 25 MG CAPSULE PO ONE (20:15)
[2021-08-23] MEDS ORDERED: MIDAZOLAM HCL PF 5 MG/5 ML VIAL. IM ONE (20:15)
--- NOTE | 2021-08-23 20:18 | PHYS DOC ---
Past History Past Medical History: Alcoholism, Anxiety, COPD Past Surgical History: Other Additional Past Surgical Histo: RIGHT EYE Smoking: Cigarettes Alcohol Use: None Drug Use: Cocaine, Methamphetamine Adult General Chief Complaint Chief Complaint: MULTIPLE COMPLAINTS HPI HPI Patient is a 61-year-old male with a past medical history of anxiety, alcohol use, marijuana use and admitted intermittent methamphetamine use who presents to the emergency department with a chief complaint of anxiety and cut to his hand. States he was having a panic attack and one of his friends gave him a pill and told him it was Xanax but it did not seem to help his anxiety attack. States he was working and the screwdriver in his hand slipped and cut his right hand at about 5 PM. States he is up-to-date on his tetanus. Denies any chest pain, shortness of breath, abdominal pain, nausea, vomiting, diarrhea. Denies any recent traumas, travels, fevers. Denies any suicidal ideation, homicidal ideation or hallucinations. Review of Systems Review of Systems Review of systems otherwise unremarkable except noted in HPI Allergies Allergies Allergies Coded Allergies Type Severity Reaction Last Updated Verified No Known Drug Allergies 02/12/20 No Physical Exam Physical Exam Constitutional: Well developed, well nourished, disheveled, in no acute distress HENT: Normocephalic, atraumatic, bilateral external ears normal, oropharynx moist, no oral exudates, nose normal. [] Eyes: conjunctiva normal, no discharge. [] Neck: Normal range of motion, no tenderness, supple, no stridor. [] Cardiovascular:Heart rate regular rhythm, no murmur [] Lungs & Thorax: Bilateral breath sounds clear to auscultation [] Abdomen: soft, no tenderness, no masses, no pulsatile masses. [] Skin: Warm, dry, no erythema, no rash. [] Extremities: Patient has 1/2 cm very superficial laceration in the webbing b etween right first and second digits. Bleeding controlled. Neurologic: Alert and oriented X 3, able to sit, stand and walk without issue, no focal deficits noted. [] Psychologic: Affect normal, judgement abnormal, mood anxious, no suicidal ideations, homicidal ideations or hallucinations [] EKG EKG [] Radiology/Procedures Radiology/Procedures [] Heart Score C/O Chest Pain: No Risk Factors: Risk Factors: DM, Current or recent (<one month) smoker, HTN, HLP, family history of CAD, obesity. Risk Scores: Risk Factors: DM, Current or recent (<one month) smoker, HTN, HLP, family history of CAD, obesity. Course & Med Decision Making Course & Med Decision Making Patient is a 61-year-old male who presents for anxiety attack and hand laceration Vital signs not concerning. Physical exam noted above. For anxiety patient given small dose of IM Versed. For patient's endorsement of arthritis was given Tylenol and Benadryl. Wound on hand was cleaned significantly. Patient up-to-date on tetanus. Bandaged. Started on antibiotics given degree of probable contamination on hand given this happened while he was working. Discussed all findings with patient. Advised to follow-up tomorrow with his primary care physician to update on ED visit. Gave return precautions to the ED. Patient very grateful, verbalized understanding and agreed with plan of discharge [] Dragon Disclaimer Dragon Disclaimer This electronic medical record was generated, in whole or in part, using a voice recognition dictation system. Departure Departure: Impression: Primary Impression: Laceration Additional Impression: Anxiety attack Disposition: 01 HOME / SELF CARE / HOMELESS Condition: STABLE Referrals: PCP,OSWALD (PCP) FARIHA HICKS MD Patient Instructions: Facial Laceration, Laceration Care, Adult Additional Instructions: Thank you for coming into the emergency department tonight and allowing us to take care of you. Please read the attached information carefully to go back over some of the things we discussed. You can continue Tylenol, ibuprofen and Benadryl as needed. Please keep your clean, dry and bandaged as we demonstrated. We were given wound care materials for home. You are also given a dose of antibiotics in the ED. Is very important that you follow-up with a primary care physician soon as you can for reevaluation. If you do not have a primary care physician you could call the 1 at the number provided or call [facility] or [facility] for [facility] care. As we discussed, you can always come back to the emergency department if you have any new or concerning symptoms. Problem Qualifiers CORRINA GAGNON MD Aug 23, 2021 20:18
[2021-08-23] MEDS ORDERED: CEPHALEXIN 250 MG CAPSULE PO ONE (20:30)
== END 2021-08-23 20:46 | disposition home or self-care (01) ==
LOC: ER 19:58
DX: S61.412A Laceration without foreign body of left hand, initial encounter (principal); F10.20 Alcohol dependence, uncomplicated; Y90.9 Presence of alcohol in blood, level not specified; F41.9 Anxiety disorder, unspecified; J44.9 Chronic obstructive pulmonary disease, unspecified; F17.210 Nicotine dependence, cigarettes, uncomplicated; F15.10 Other stimulant abuse, uncomplicated; F14.10 Cocaine abuse, uncomplicated; W27.0XXA Contact with workbench tool, initial encounter; Y93.89 Activity, other specified; Y92.89 Other specified places as the place of occurrence of the external cause; Y99.8 Other external cause status
CPT/HCPCS: 96372; 99284; J2250; Q0163

== ENCOUNTER 2021-12-01 16:35 | Emergency (ER) | payer OTHER ==
[~2021-12-01] VITALS: Ht 172.7 cm; Wt 78.0 kg
[2021-12-01] MEDS ORDERED: IV NORMAL SALINE 1,000ML 1,000 ML IV ONE (16:45)
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
[2021-12-01 17:48] LABS: BASO # 0.2 x10^3/uL (0.0-0.2); BASO % 2 % (0-3); EOS # 0.1 x10^3/uL (0.0-0.7); EOS % 2 % (0-3); HEMATOCRIT 33.1 % (39.0-53.0); HEMOGLOBIN 10.7 g/dL (13.0-17.5); LYMPH % 15 % (24-48); MEAN CORPUSCULAR HEMOGLOBIN 29 pg (25-35); MEAN CORPUSCULAR HGB CONC 32 g/dL (31-37); MEAN CORPUSCULAR VOLUME 88 fL (79-100); MONO # 0.8 x10^3/uL (0.0-1.1); MONO % 12 % (0-9); NEUT # 4.7 x10^3uL (1.8-7.7); NEUT % 69 % (31-73); PLATELET COUNT 293 x10^3/uL (140-400); RED BLOOD COUNT 3.75 x10^6/uL (4.30-5.70); RED CELL DISTRIBUTION WIDTH 14.8 % (11.5-14.5); WHITE BLOOD COUNT 6.9 x10^3/uL (4.0-11.0)
[2021-12-01 17:54] LABS: CALCIUM 7.7 mg/dL (8.5-10.1); CREATININE 0.7 mg/dL (0.7-1.3); GFR 114.6; POTASSIUM 4.1 mmol/L (3.5-5.1)
[2021-12-01 18:01] LABS: ALBUMIN 2.8 g/dL (3.4-5.0); ALBUMIN/GLOBULIN RATIO 0.7 (1.0-1.7); TOTAL BILIRUBIN 0.2 mg/dL (0.2-1.0); TOTAL PROTEIN 6.9 g/dL (6.4-8.2)
[2021-12-01 18:32] LABS: AMPHETAMINE/METHAMPHETAMINE POS (NEG); BARBITURATES NEG (NEG); BENZODIAZEPINES POS (NEG); CANNABINOIDS POS (NEG); COCAINE NEG (NEG); METHADONE NEG (NEG); OPIATES POS (NEG); PHENCYCLIDINE NEG (NEG)
[2021-12-01 18:45] LABS: CLARITY,URINE CLEAR; COLOR,URINE YELLOW; GLUCOSE,URINE NEG (NEG)
[2021-12-01 18:46] LABS: BACTERIA,URINE 0 /HPF (0-FEW); NITRITE,URINE NEG (NEG); SQUAMOUS EPITHELIAL CELL,UR OCC /LPF; UROBILINOGEN,URINE 0.2 mg/dL (0.2 mg/dL); WBC,URINE OCC /HPF (0-4)
[2021-12-01 18:58] LABS: ACETAMIN < 2 mcg/mL (10-30); ETHANOL < 10 mg/dL (0-10); SALIC < 2.8 mg/dL (2.8-20.0)
[2021-12-01] MEDS ORDERED: OLANZapine 2.5 MG TABLET PO ONE (19:30)
[2021-12-01 20:32] VITALS: BP 108/62
--- NOTE | 2021-12-01 21:46 | EKG ---
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
== END 2021-12-01 20:35 ==
LOC: ER 16:35
DX: Z04.1 Encounter for examination and observation following transport accident (principal); F15.10 Other stimulant abuse, uncomplicated; F12.10 Cannabis abuse, uncomplicated; F11.10 Opioid abuse, uncomplicated; F19.10 Other psychoactive substance abuse, uncomplicated; F10.20 Alcohol dependence, uncomplicated; J44.9 Chronic obstructive pulmonary disease, unspecified; F17.210 Nicotine dependence, cigarettes, uncomplicated; Y90.0 Blood alcohol level of less than 20 mg/100 ml; V89.2XXA Person injured in unspecified motor-vehicle accident, traffic, initial encounter; Y93.89 Activity, other specified; Y92.89 Other specified places as the place of occurrence of the external cause; Y99.8 Other external cause status
CPT/HCPCS: 36415; 80053; 80307; 80329; 81001; 84484; 85025; 93005; 96361; 96374; 99284; G0480; J2060; J7030